=== PATIENT | male | born 1965 | race Caucasian/White ===

== ENCOUNTER 2016-11-25 23:06 | Emergency (ER) | payer OTHER ==
[~2016-11-25] VITALS: Ht 175.3 cm; Wt 91.2 kg
[~2016-11-25 23:06] MED LIST: HYDROCODON-ACE1 EAC7 PO
[2016-11-26] MEDS ORDERED: CIPRODEX OTIC7.5 ML LEFT EAR (01:59)
[2016-11-26] MEDS ORDERED: KEFLEX500 MG PO (01:59)
[2016-11-26] MEDS ORDERED: NORCO 5/3251 TABLET PO (02:19)
[2016-11-26 02:40] VITALS: BP 149/92
== END 2016-11-26 02:42 | disposition home or self-care (01) ==
LOC: EME 23:06
PROC: 0H99XZZ Drainage of Perineum Skin, External Approach (ICD-10-PCS; principal; 2016-11-26)
DX: L02.214 Cutaneous abscess of groin (principal); H60.92 Unspecified otitis externa, left ear; B95.8 Unspecified staphylococcus as the cause of diseases classified elsewhere
CPT/HCPCS: 87070; 87075; 87077; 87147; 87186; 87205; 99281; 99283; J0696

== ENCOUNTER → 2017-12-08 | Emergency (ER) | payer OTHER ==
[~2017-12-08] VITALS: Ht 177.8 cm; Wt 94.6 kg
[~2017-12-08] MED LIST changes: +CIPRODEX OTIC7.5 ML LEFT EAR; +KEFLEX500 MG PO; +NORCO 5/3251 TABLET PO; +TRAMADOL HCL50 MG PO
[2017-12-08 15:16] VITALS: BP 135/91
== END | disposition home or self-care (01) ==
LOC: EME 15:09
PROC: 0H9CXZZ Drainage of Left Upper Arm Skin, External Approach (ICD-10-PCS; principal; 2017-12-08)
DX: L03.112 Cellulitis of left axilla (principal); S99.921A Unspecified injury of right foot, initial encounter
CPT/HCPCS: 99281; 99284

== ENCOUNTER → 2017-12-15 | Outpatient (CLI) | payer OTHER ==
[~2017-12-15] MED LIST changes: +BACTRIM,SEPT1 TABLE1 PO; +FLAGYL500 MG PO
== END | disposition home or self-care (01) ==
LOC: AMB 14:30
DX: A49.02 Methicillin resistant Staphylococcus aureus infection, unspecified site (principal)
CPT/HCPCS: 99212